=== PATIENT | male | born 1990 | race Caucasian/White ===

== ENCOUNTER 2017-01-20 21:15 | Emergency (ER) | payer BC ==
[2017-01-20 21:32] VITALS: BP 132/60; PULSE 71; RESP 18; TEMP 97.8
[2017-01-20] MEDS ORDERED: DIPH,PERTUS(ACELL)TETVAC-LF 0.5 ML VIAL IM ONE (21:56)
--- NOTE | 2017-01-20 22:24 | XR ---
History: Reason: Pain Exam: XR RIGHT FINGER 3 images third ray Comparison: None available FINDINGS: No radiopaque foreign body identified. No fracture or dislocation. IMPRESSION: No radiopaque foreign body identified.
--- NOTE | 2017-01-20 22:41 | ED ---
Wound/Laceration HPI - General Chief Complaint: Wound/Laceration Stated Complaint: laceration Time Seen by Provider: 01/20/17 22:09 Source: patient, RN notes reviewed, old records reviewed Mode of arrival: ambulatory Limitations: no limitations - History of Present Illness Initial Comments: Patient is a 26 year old male with laceration over right fourth digit after getting it caught on a screen door. Patient does not have updated tetanus, and states he has full range of motion of the finger, denies any other injury. - Related Data Home Medications Medication Instructions Recorded Confirmed No Known Home Medications [No 01/20/17 01/20/17 Known Home Medications] Allergies Allergy/AdvReac Type Severity Reaction Status Date / Time No Known Allergies Allergy Verified 01/20/17 21:32 Review of Systems ROS Statement: Those systems with pertinent positive or pertinent negative responses have been documented in the HPI. ROS Other: All systems not noted in ROS Statement are negative. Past Medical History Past Medical History: No Reported History History of Any Multi-Drug Resistant Organisms: None Reported Past Surgical History: No Surgical Hx Reported Past Psychological History: No Psychological Hx Reported Smoking Status: Never smoker Past Alcohol Use History: Occasional Past Drug Use History: Marijuana General Exam - General Exam Comments Initial Comments: Pleasant 26 year old male, no distress. Limitations: no limitations General appearance: alert, in no apparent distress Head exam: Present: atraumatic, normocephalic, normal inspection Eye exam: Present: normal appearance, PERRL, EOMI. Absent: scleral icterus, conjunctival injection, periorbital swelling ENT exam: Present: normal exam, mucous membranes moist Neck exam: Present: normal inspection. Absent: tenderness, meningismus, lymphadenopathy Respiratory exam: Present: normal lung sounds bilaterally. Absent: respiratory distress, wheezes, rales, rhonchi, stridor Cardiovascular Exam: Present: regular rate, normal rhythm, normal heart sounds. Absent: systolic murmur, diastolic murmur, rubs, gallop, clicks Right Hand L/R Back: 1 - 1cm laceration Back exam: Present: normal inspection Neurological exam: Present: alert, oriented X3, CN II-XII intact Psychiatric exam: Present: normal affect, normal mood Skin exam: Present: warm, dry, intact, normal color. Absent: rash Course Vital Signs 01/20/17 21:29 Temperature 97.8 F Pulse Rate 71 Respiratory 18 Rate Blood Pressure 132/60 O2 Sat by Pulse 98 Oximetry Procedures - Laceration Laceration #1 Indication: laceration Site: hand Size (cm): 1 Description: linear Depth: simple, single layer Anesthetic Used: benzocaine 0.25% Anesthesia Technique: local infiltration Amount (mls): 2 Pre-repair: wound explored, irrigated extensively Size of Sutures: 6-0 Number of Sutures: 2 Technique: simple, interrupted Patient Tolerated Procedure: well, no complications Medical Decision Making - Medical Decision Making Patient is a 26 year old male, with laceration over left fourth finger. Patient given up dated tetanus. Laceration superficial, no tendon involvement. Patient has full range of motion. Wound was cleaned and well approximated with 2 sutrures. Patient undertands to monitor for infection, return parameters discussed. Patient understands treatment plan and will comply. Disposition Clinical Impression: Finger laceration Disposition: HOME SELF-CARE Condition: Good Instructions: Laceration (ED) Additional Instructions: Please return to the emergency room in 8 days to have sutures removed. Please leave wound covered for the first 24-48 hours and then leave open to air after that time. Please use clean soap and water to clean the suture area to prevent scabbing over the top of your sutures. Please watch for any signs of infection which may include but not limited to increased pain, swelling, redness, fever or chills. Please return to the emergency room if any signs of infection do occur. Please return to the emergency room for any other concerns or complications. Referrals: Adam Amezcua Jr, DO [Primary Care Provider] - 1-2 days Time of Disposition: 22:40
== END 2017-01-20 22:45 | disposition home or self-care (01) ==
LOC: EC 21:15
DX: S61.214A Laceration without foreign body of right ring finger without damage to nail, initial encounter (principal); Z23 Encounter for immunization; W25.XXXA Contact with sharp glass, initial encounter; Y92.009 Unspecified place in unspecified non-institutional (private) residence as the place of occurrence of the external cause
CPT/HCPCS: 12001; 90471; 90715; 99283

== ENCOUNTER 2017-03-26 12:23 | Day surgery (SDC) | payer BC ==
[2017-03-26 12:41] VITALS: RESP 16; TEMP 98.3
[2017-03-26] MEDS ORDERED: LACTATED RINGERS 1,000 ML IV ONE (12:56)
[2017-03-26] MEDS ORDERED: LIDOCAINE 1% 20 ML VIAL (10MG/ML) FOR IV START INTRADERMA ONE (12:56)
[2017-03-26] MEDS ORDERED: PROPOFOL 10 MG/ML 20 ML VIAL IV ONE (13:38)
[2017-03-26] MEDS ORDERED: GLYCOPYRROLATE 0.2 MG/ML 2 ML VIAL ONE (13:38)
[2017-03-26] MEDS ORDERED: LIDOCAINE 1% INJ 10MG/ML (20 ML MDV) ONE (13:38)
--- NOTE | 2017-03-26 13:39 | P.GSHP ---
History of Present Illness H&P Date: 03/26/17 Chief Complaint: GERD This a 18-year-old male referred from Dr. Gutiérrez's office. Patient presents today for EGD. He's had issues with GERD. Past Medical History Past Medical History: No Reported History History of Any Multi-Drug Resistant Organisms: None Reported Past Surgical History: No Surgical Hx Reported Past Anesthesia/Blood Transfusion Reactions: No Reported Reaction Past Psychological History: No Psychological Hx Reported Smoking Status: Never smoker Past Alcohol Use History: Occasional Past Drug Use History: Marijuana Medications and Allergies Home Medications Medication Instructions Recorded Confirmed Type Omeprazole Magnesium [Prilosec Otc] 20 mg PO 03/26/17 History Allergies Allergy/AdvReac Type Severity Reaction Status Date / Time No Known Allergies Allergy Verified 03/26/17 12:43 Surgical - Exam Vital Signs Temp Pulse Resp BP Pulse Ox 98.3 F 72 16 124/76 99 03/26/17 12:39 03/26/17 12:39 03/26/17 12:39 03/26/17 12:39 03/26/17 12:39 - General well developed, no distress - Eyes PERRL - ENT normal pinna - Neck no masses - Respiratory normal expansion - Cardiovascular Rhythm: regular - Abdomen Abdomen: soft, non tender Assessment and Plan Plan: GERD. We'll perform EGD.
--- NOTE | 2017-03-26 13:53 | P.OP ---
Date of Procedure: 03/26/17 Preoperative Diagnosis: GERD Postoperative Diagnosis: Antral gastritis Hiatal hernia Esophagitis Procedure(s) Performed: EGD Implants: Anesthesia: MAC Surgeon: Santana Pearce Pathology: other (Antrum, esophagus) Condition: stable Disposition: PACU Indications for Procedure: Operative Findings: Description of Procedure: Patient's placed on the endoscopy table lateral position. He received IV sedation. The gastroscope some placed oropharynx passed in the esophagus and stomach. Scope then placed through the pylorus. The first and second portion of duodenum appeared normal. Scope was then brought back the antrum and this appeared mildly inflamed. The scope was then retroflexed and the remainder stomach appeared normal. The GE junction was at 40 cm. There was a moderate hiatal hernia. The GE junction was inflamed and there is evidence of distal esophagitis a biopsies performed. The proximal esophagus appeared normal. Scope was withdrawn for patient.
[2017-03-26 14:15] VITALS: BP 118/72; PULSE 54
== END 2017-03-26 14:31 | disposition home or self-care (01) ==
LOC: ORWHC2ENDO 12:23
PROVIDERS: ATTEND Surgery
DX: K21.9 Gastro-esophageal reflux disease without esophagitis (principal); K29.50 Unspecified chronic gastritis without bleeding; K20.0 Eosinophilic esophagitis; K44.9 Diaphragmatic hernia without obstruction or gangrene; B96.81 Helicobacter pylori [H. pylori] as the cause of diseases classified elsewhere; Z79.899 Other long term (current) drug therapy
CPT/HCPCS: 43239; 88305; 88342; J2001; J2704

== ENCOUNTER 2018-10-03 05:51 | Emergency (ER) | payer BC ==
[2018-10-03 05:55] VITALS: BP 128/88; PULSE 55; RESP 16; TEMP 97.7
[2018-10-03] MEDS ORDERED: LIDOCAINE VISCOUS 2% 15 ML CUP MUCOUS MEM STA (06:35)
--- NOTE | 2018-10-03 06:37 | ED ---
ENT HPI - General Chief complaint: ENT Stated complaint: Sore Throat/Earache Time Seen by Provider: 10/03/18 06:03 Source: patient Mode of arrival: ambulatory Limitations: no limitations - History of Present Illness MD complaint: sore throat Onset/Timin -: days(s) Location: R ear, throat Severity: moderate Quality: aching Consistency: constant Improves with: none Worsens with: swallowing - Related Data Home Medications Medication Instructions Recorded Confirmed Omeprazole Magnesium [Prilosec Otc] 20 mg PO 03/26/17 Previous Rx's Medication Instructions Recorded Lidocaine Viscous [Xylocaine 5 ml PO Q3HR PRN #100 ml 10/03/18 Viscous 2%] Allergies Allergy/AdvReac Type Severity Reaction Status Date / Time No Known Allergies Allergy Verified 10/03/18 05:55 Review of Systems ROS Statement: Those systems with pertinent positive or pertinent negative responses have been documented in the HPI. ROS Other: All systems not noted in ROS Statement are negative. Constitutional: Denies: fever, chills Eyes: Denies: eye pain, vision change ENT: Reports: ear pain, throat pain. Denies: hearing loss Respiratory: Denies: cough, dyspnea Cardiovascular: Denies: chest pain, palpitations Skin: Denies: rash Neurological: Denies: headache Past Medical History Past Medical History: No Reported History History of Any Multi-Drug Resistant Organisms: None Reported Past Surgical History: No Surgical Hx Reported Past Anesthesia/Blood Transfusion Reactions: No Reported Reaction Past Psychological History: No Psychological Hx Reported Smoking Status: Never smoker Past Alcohol Use History: Occasional Past Drug Use History: Marijuana General Exam Limitations: no limitations General appearance: alert, in no apparent distress Head exam: Present: atraumatic, normocephalic Eye exam: Present: normal appearance. Absent: scleral icterus, conjunctival injection ENT exam: Present: mucous membranes moist, normal external ear exam, other ( Patient has cobblestoning of the pharynx. There is a trace of effusion right tympanic membrane otherwise normal no erythema or evidence of infection.) Neck exam: Present: full ROM, lymphadenopathy. Absent: tenderness, meningismus Respiratory exam: Present: normal lung sounds bilaterally. Absent: respiratory distress, wheezes, rales, rhonchi, stridor Cardiovascular Exam: Present: regular rate, normal rhythm, normal heart sounds. Absent: systolic murmur, diastolic murmur, rubs, gallop GI/Abdominal exam: Present: soft. Absent: tenderness, organomegaly Neurological exam: Present: alert Skin exam: Present: warm, dry, intact, normal color. Absent: rash Course Vital Signs 10/03/18 05:52 Temperature 97.7 F Pulse Rate 55 L Respiratory 16 Rate Blood Pressure 128/88 O2 Sat by Pulse 97 Oximetry Medical Decision Making - Medical Decision Making Patient is a 28-year-old man with pharyngitis and trace effusion consistent with station tube dysfunction. Discussed appropriate further care and return parameters. - Lab Data Lab Results 10/03/18 Range/Units 06:17 Group A Strep Rapid Negative (Negative) Disposition Clinical Impression: Pharyngitis Disposition: HOME SELF-CARE Condition: Good Instructions: Pharyngitis (ED) Prescriptions: Lidocaine Viscous [Xylocaine Viscous 2%] 5 ml PO Q3HR PRN #100 ml PRN Reason: Sore Throat Is patient prescribed a controlled substance at d/c from ED?: No Referrals: None,Stated [Primary Care Provider] - 1-2 days
== END 2018-10-03 06:58 | disposition home or self-care (01) ==
LOC: EC 05:51
DX: J02.9 Acute pharyngitis, unspecified (principal); H73.891 Other specified disorders of tympanic membrane, right ear; H92.01 Otalgia, right ear; Z79.899 Other long term (current) drug therapy
CPT/HCPCS: 87081; 87430; 99283

== ENCOUNTER 2021-07-30 09:48 | Emergency (ER) | payer BC ==
[2021-07-30 09:53] VITALS: BP 127/77; PULSE 74; RESP 20; TEMP 98.3
--- NOTE | 2021-07-30 10:23 | XR ---
EXAMINATION TYPE: XR hand complete LT DATE OF EXAM: 07/30/2021 COMPARISON: NONE HISTORY: Pain TECHNIQUE: Three views are submitted. FINDINGS: There is a displaced fracture involving the head of the fourth metacarpal. Remaining osseous structur es intact. Joint spaces preserved. IMPRESSION: 1. Displaced left fourth distal metacarpal fracture.
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
== END 2021-07-30 10:42 | disposition home or self-care (01) ==
LOC: EC 09:48
DX: S62.335A Displaced fracture of neck of fourth metacarpal bone, left hand, initial encounter for closed fracture (principal); F12.90 Cannabis use, unspecified, uncomplicated; W22.01XA Walked into wall, initial encounter
CPT/HCPCS: 29125; 99283